=== PATIENT | female | born 1995 | race Caucasian/White ===

== ENCOUNTER 2019-06-11 20:55 | Inpatient (IN) | payer MEDICAID ==
[~2019-06-11] VITALS: Ht 162.6 cm; Wt 65.9 kg
[2019-06-11] MEDS ORDERED: D5%-LACTATED RINGERS 1,000 ML IV SCH (20:58)
[2019-06-11] MEDS ORDERED: OXYTOCIN 30U/ 0.9% NaCL 500ML 500 ML IV ONE (20:58)
[2019-06-11] MEDS ORDERED: LACTATED RINGERS 1,000 ML IV SCH (20:58)
[2019-06-11] MEDS ORDERED: ONDANSETRON 2MG/ML, 2ML IVPush PRN (21:00)
[2019-06-11] MEDS ORDERED: METOCLOPRAMIDE 5 MG/ML, 2ML IVPush PRN (21:00)
[2019-06-11] MEDS ORDERED: TERBUTALINE 1 MG/ML, 1ML IVPush PRN (21:00)
[2019-06-11] MEDS ORDERED: FENTANYL PF 100 MCG/2ML IVPush PRN (21:00)
[2019-06-11] MEDS ORDERED: TERBUTALINE 1 MG/ML, 1ML SQ PRN (21:00)
[2019-06-11] MEDS ORDERED: SODIUM CITRATE/CITRIC ACID 30 ML UDC PO PRN (21:00)
[2019-06-11] MEDS ORDERED: CALCIUM CARBONATE 500 MG TAB.CHEW PO PRN (21:00)
[2019-06-11] MEDS ORDERED: FENTANYL PF 100 MCG/2ML IV PRN (21:00)
[2019-06-11] MEDS ORDERED: OXYTOCIN 30U/ 0.9% NaCL 500ML 500 ML ONE ×2 (21:01→22:14)
[2019-06-11] MEDS ORDERED: NEWBORN KIT ONE (21:01)
[2019-06-11] MEDS ORDERED: LIDOCAINE 1%, 20ML ONE (21:01)
[2019-06-11] MEDS ORDERED: MISOPROSTOL 200 MCG TABLET ONE (21:01)
[2019-06-11] MEDS: OXYTOCIN 30U/ 0.9% NaCL 500ML 500 ML IV SCH (21:20)
[2019-06-11 21:49] LABS: BASOPHILS # (AUTO) 0.05 x10^3/uL (0-0.1); BASOPHILS % (AUTO) 1 % (0-1); EOSINOPHILS # (AUTO) 0.01 x10^3/uL (0-0.4); EOSINOPHILS % (AUTO) 0 % (1-7); LYMPHOCYTES % (AUTO) 25 % (22-44); MD NO; MEAN CORPUSCULAR HEMOGLOBIN 26.6 pg (27.0-34.8); MEAN CORPUSCULAR VOLUME 80.6 fL (80-100); MEAN PLATELET VOLUME 11.2 fL (7.4-10.4); MONOCYTES # (AUTO) 0.42 x10^3/uL (0.2-0.8); MONOCYTES % (AUTO) 5 % (2-9); NEUTROPHILS % (AUTO) 69 % (42-75); PLATELET COUNT 292 x10^3/uL (130-400); RED BLOOD COUNT 4.64 x10^6/uL (3.82-5.3); RED CELL DISTRIBUTION WIDTH 15.3 % (9.6-15.2)
[2019-06-11] MEDS ORDERED: METHYLERGONOVINE 0.2 MG/ML IM PRN (22:00)
[2019-06-11] MEDS ORDERED: ONDANSETRON 2MG/ML, 2ML IV PRN (22:00)
[2019-06-11] MEDS ORDERED: MISOPROSTOL 200 MCG TABLET PR PRN (22:00)
[2019-06-11] MEDS ORDERED: HYDROcodone/APAP 5/325 TABLET PO PRN (22:00)
[2019-06-11] MEDS ORDERED: SIMETHICONE 80 MG CHEW TAB PO PRN (22:00)
[2019-06-11] MEDS ORDERED: IBUPROFEN 600 MG TABLET ONE (22:14)
[2019-06-12] VITALS: BP 119/75
[2019-06-12 04:00] VITALS: BP 123/80
[2019-06-12] MEDS: IBUPROFEN 800 MG TABLET PO PRN ×2 (04:22→19:58)
[2019-06-12 05:05] LABS: BASOPHILS # (AUTO) 0.05 x10^3/uL (0-0.1); BASOPHILS % (AUTO) 0 % (0-1); EOSINOPHILS # (AUTO) 0.04 x10^3/uL (0-0.4); EOSINOPHILS % (AUTO) 0 % (1-7); LYMPHOCYTES # (AUTO) 1.95 x10^3/uL (1-3.4); LYMPHOCYTES % (AUTO) 17 % (22-44); MD NO; MEAN CORPUSCULAR HEMOGLOBIN 26.5 pg (27.0-34.8); MEAN CORPUSCULAR HGB CONC 32.6 g/dL (32.4-35.8); MEAN CORPUSCULAR VOLUME 81.3 fL (80-100); MEAN PLATELET VOLUME 11.1 fL (7.4-10.4); MONOCYTES # (AUTO) 0.67 x10^3/uL (0.2-0.8); MONOCYTES % (AUTO) 6 % (2-9); NEUTROPHILS # (AUTO) 8.91 x10^3/uL (1.8-6.8); NEUTROPHILS % (AUTO) 77 % (42-75); PLATELET COUNT 268 x10^3/uL (130-400); RED BLOOD COUNT 4.33 x10^6/uL (3.82-5.3); RED CELL DISTRIBUTION WIDTH 15.6 % (9.6-15.2)
[2019-06-12] MEDS: OXYTOCIN 30U/ 0.9% NaCL 500ML 500 ML IV SCH ×2 (07:49→17:49)
[2019-06-12 08:00] VITALS: BP 122/79
[2019-06-12] MEDS: DOCUSATE 100 MG CAPSULE PO PRN ×2 (09:53→19:58)
[2019-06-12] MEDS: HYDROcodone/APAP 5/325 TABLET PO PRN (09:53)
[2019-06-12] MEDS: PRENATAL VIT/IRON/FA 1 EACH TABLET PO SCH (09:53)
[2019-06-12 12:45] VITALS: BP 126/83
[2019-06-12 16:15] VITALS: BP 125/79
[2019-06-12 19:55] VITALS: BP 120/74
[2019-06-13] MEDS: OXYTOCIN 30U/ 0.9% NaCL 500ML 500 ML IV SCH (03:49)
[2019-06-13 07:43] VITALS: BP 108/61
[2019-06-13] MEDS: HYDROcodone/APAP 5/325 TABLET PO PRN ×2 (08:19→17:13)
[2019-06-13] MEDS: IBUPROFEN 800 MG TABLET PO PRN ×2 (08:19→17:13)
[2019-06-13] MEDS: PRENATAL VIT/IRON/FA 1 EACH TABLET PO SCH (08:19)
[2019-06-13] MEDS: DOCUSATE 100 MG CAPSULE PO PRN ×2 (08:19→17:13)
== END 2019-06-13 19:00 | disposition home or self-care (01) | DRG 560 ==
LOC: LDOP 20:55 → LDIP 21:06 → 2NW 23:32
PROVIDERS: ADMIT Obstetrics & Gynecology; ATTEND Obstetrics & Gynecology
PROC: 10E0XZZ Delivery of Products of Conception, External Approach (ICD-10-PCS; principal; 2019-06-11)
DX: O80 Encounter for full-term uncomplicated delivery (principal); Z37.0 Single live birth; Z3A.36 36 weeks gestation of pregnancy
CPT/HCPCS: 36415; 82962; 85025; 86592; 86762; 86803; 86850; 86900; 87340; 87806; G0378; G0475; J2590